=== PATIENT | female | born 1970 | race African-American/Black ===

== ENCOUNTER 2018-10-05 19:38 | Emergency (ER) | payer OTHER ==
[2018-10-05] MEDS ORDERED: KETOROLAC TROMETHAMINE 60 MG/2 ML SDV IM ONE (20:48)
[2018-10-05] MEDS ORDERED: METHOCARBAMOL 750 MG TABLET PO ONE (20:49)
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
[2018-10-05] MEDS ORDERED: HYDROCODONE/ACETAMINOPHEN 5-325 MG (6 TAB/ER DISP) PO PRN ×2 (22:29→22:31)
[2018-10-05] MEDS ORDERED: HYDROCODONE/ACETAMINOPHEN 5-325 MG TABLET PO ONE ×3 (22:29→22:34)
[2018-10-05 23:12] VITALS: BP 125/67
== END 2018-10-05 23:07 | disposition home or self-care (01) ==
LOC: ER 19:38
DX: M25.511 Pain in right shoulder (principal); R07.9 Chest pain, unspecified; V49.40XA Driver injured in collision with unspecified motor vehicles in traffic accident, initial encounter
CPT/HCPCS: 99284; 96372; 71046; 73030; J1885; J3490